=== PATIENT | male | born 1950 | race Caucasian/White ===

== ENCOUNTER 2017-06-11 10:05 | Emergency (ER) | payer MEDICARE, BC ==
[~2017-06-11] VITALS: Ht 175.3 cm; Wt 81.7 kg
[~2017-06-11 10:05] MED LIST: ASPIRIN EC81 M1; CHOLESTEROL MED; CIPROFLOXACIN500 M3 PO; LORTAB 5 MG/5001 TA1 PO; MAGNESIUM100 MG; VITAMIN E400 UNIT
[2017-06-11] MEDS ORDERED: XARELTO20 MG PO (10:09)
[2017-06-11] MEDS ORDERED: MEXILETINE 150150 MG PO (10:10)
[2017-06-11] MEDS ORDERED: DIGOXIN125 MCG PO (10:10)
[2017-06-11] MEDS ORDERED: LIPITOR 20 MG T20 M1 PO (10:10)
[2017-06-11] MEDS ORDERED: LISINOPRIL10 MG PO (10:10)
[2017-06-11] MEDS ORDERED: CLARITIN10 MG PO (10:10)
[2017-06-11] MEDS ORDERED: COREG25 MG PO (10:10)
[2017-06-11] MEDS ORDERED: ALDACTONE25 MG PO (10:11)
[2017-06-11] MEDS ORDERED: PROAIR HFA8.5 GM (10:11)
[2017-06-11 10:53] LABS: ABSOLUTE BASOPHILS 0.1 thou/uL (0.0-0.2); ABSOLUTE EOSINOPHILS 0.2 thou/uL (0.0-0.7); ABSOLUTE LYMPHOCYTES 1.2 thou/uL (0.8-5.3); ABSOLUTE MONOCYTES 0.6 thou/uL (0.0-1.2); ABSOLUTE NEUTROPHILS 5.8 thou/uL (1.6-8.1); BASOPHILS 0.7 %; EOSINOPHILS 2.3 %; HEMATOCRIT 41.2 % (42.0-52.0); HEMOGLOBIN 13.6 gm/dL (14.0-18.0); LYMPHOCYTES 14.7 %; MCH 31.5 pg (26.0-34.0); MCHC 32.9 g/dL (28.0-37.0); MCV 95.9 fL (80.0-100.0); MONOCYTES 7.6 %; MPV 8.6 fl. (7.2-11.1); NUCLEATED RBCS 0 /100WBC; PLATELET COUNT* 166 thou/uL (150-400); POLYS 74.7 %; RDW-CV 17.5 % (10.5-14.5); WBC 7.8 thou/uL (4.0-11.0)
[2017-06-11 11:01] LABS: ANION GAP 5 mmol/L (7-16); BUN 16 mg/dL (7-18); CALCIUM 8.9 mg/dL (8.5-10.1); CHLORIDE 105 mmol/L (98-107); CO2 28 mmol/L (21-32); CREATININE 1.1 mg/dL (0.6-1.3); GLUCOSE 122 mg/dL (70-99); POTASSIUM 4.9 mmol/L (3.5-5.1); SODIUM 138 mmol/L (136-145)
[2017-06-11 11:02] LABS: APTT 35.7 Seconds (25.0-31.3); INR 1.6; PROTIME 15.7 Seconds (9.20-11.50)
[2017-06-11 11:07] LABS: ALBUMIN 3.2 g/dL (3.4-5.0); ALKALINE PHOSPHATASE 90 U/L (46-116); SGOT 25 U/L (15-37); SGPT 33 U/L (30-65); TOTAL BILIRUBIN 0.2 mg/dL (<0.1-1.0); TOTAL PROTEIN 6.5 g/dL (6.4-8.2); TROPONIN-I LEVEL <0.06 ng/mL (<0.06)
[2017-06-11 12:13] VITALS: BP 109/78
--- NOTE | 2017-06-11 14:25 | EKG ---
[place] [address] ELECTROCARDIOGRAM REPORT Name: SG BILLINGS [facility] CYPRESS[facility]ad[facility]#: [id number] Admission: 06/11/17 Attend Phys: Discharge: 06/11/17 Date of : 50 Report #: [id number] THIS REPORT FOR: //name// [facility] ED Test Date: 2017-06-11 Test Time: 10:15:37 Pat Name: SG BILLINGS Department: Room: Gender: M Puffer Tender: SHAWN : 1950 Requested By: Carlos Alberto Sparks Order Number: [id number] MD: Alcides Richey Measurements Intervals [place] Rate: 80 P: [place]: QRS: 147 QRSD: 221 T: -26 QT: 503 QTc: 581 Interpretive Statements V-paced complexes No further analysis attempted due to paced rhythm No previous ECG available for comparison Electronically Signed On 06-11-2017 14:25:02 DENTAL PRACTICE MANAGER by Alcides Richey [email or web address] <ELECTRONICALLY SIGNED> By: Alcides Richey MD, [facility] 06/11/17 1425 1015 1015 Alcides Richey MD, FACC /EPI
== END 2017-06-11 12:14 | disposition home or self-care (01) ==
LOC: M.ERS 10:05
PROVIDERS: Family Medicine
DX: S00.81XA Abrasion of other part of head, initial encounter (principal); W18.30XA Fall on same level, unspecified, initial encounter; Y93.01 Activity, walking, marching and hiking; Y92.480 Sidewalk as the place of occurrence of the external cause; Y99.8 Other external cause status

== ENCOUNTER 2019-09-09 19:52 | Emergency (ER) | payer MEDICARE, BC ==
[~2019-09-09] VITALS: Ht 175.3 cm; Wt 70.8 kg
[~2019-09-09 19:52] MED LIST changes: +ALDACTONE25 MG PO; +CLARITIN10 MG PO; +COREG25 MG PO; +DIGOXIN125 MCG PO; +LIPITOR 20 MG T20 M1 PO; +LISINOPRIL10 MG PO; +MEXILETINE 150150 MG PO; +PROAIR HFA8.5 GM; +XARELTO20 MG PO
[2019-09-09] MEDS ORDERED: XARELTO20 MG PO (20:03)
[2019-09-09] MEDS ORDERED: [UNRECOGNIZED DRUG - OTHER] (20:04)
[2019-09-09] MEDS ORDERED: KEFLEX500 M1 PO (20:40)
[2019-09-09 21:00] VITALS: BP 129/75
== END 2019-09-09 21:01 | disposition home or self-care (01) ==
LOC: M.ERS 19:52
DX: S60.512A Abrasion of left hand, initial encounter (principal); L03.114 Cellulitis of left upper limb; W18.2XXA Fall in (into) shower or empty bathtub, initial encounter; Y93.89 Activity, other specified; Y92.89 Other specified places as the place of occurrence of the external cause; Y99.8 Other external cause status

== ENCOUNTER 2019-10-05 23:24 | Emergency (ER) | payer MEDICARE, BC ==
[~2019-10-05] VITALS: Ht 175.3 cm; Wt 72.6 kg
[~2019-10-05 23:24] MED LIST changes: +KEFLEX500 M1 PO; +[UNRECOGNIZED DRUG - OTHER]
[2019-10-05] MEDS ORDERED: IRON325 M1 PO (23:38)
[2019-10-05] MEDS ORDERED: REMERON15 M1 PO (23:39)
[2019-10-06] MEDS ORDERED: TYLENOL WITH CO1 TA1 PO (01:22)
[2019-10-06 01:44] VITALS: BP 125/80
== END 2019-10-06 01:44 | disposition home or self-care (01) ==
LOC: M.ERS 23:24
DX: S69.81XA Other specified injuries of right wrist, hand and finger(s), initial encounter (principal); W18.39XA Other fall on same level, initial encounter; Y93.89 Activity, other specified; Y92.89 Other specified places as the place of occurrence of the external cause; Y99.8 Other external cause status